=== PATIENT | male | born 1975 | race Caucasian/White ===

== ENCOUNTER 2020-01-06 22:44 | Emergency (ER) | payer SELFPAY ==
--- NOTE | 2020-01-06 22:45 | PC.NURSE ---
healthcare staff and md at bedside. pt deemed not an SI or HI patient at this time. sister allowed at bedside per md request. pt states i was just trying to sleep, i'm going through alot of shit right now, being forced to sleep in my truck -due to epo placed on me by -and my chronic back pain. I have a high tolerance to pain meds and buy a shit-ton off the street of oxycodone and try to supplement with methadone-my tolerance is high. I never was out . The monotype keyboard operator told me to get in the ambulance or go to long-term so i got in the ambulance. They sat and bullshitted with me for an hour and a half prior to me coming here . 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
--- NOTE | 2020-01-06 22:56 | PC.NURSE ---
Spoke with Lorie at poison control. Told her the patient stated he drank 300mg of methadone and snorted 150 mg of oxycodone at 1930 Lorie stated to obtain routine tox labs and watch patient for an hour. Pt is non-compliant with blood work at this time.
[2020-01-06 22:57] VITALS: BP 141/102; PULSE 98; RESP 16; TEMP 37.1; O2SAT 99; BMI 19.2
[2020-01-06 23:23] VITALS: BP 144/95; PULSE 133; RESP 18; O2SAT 97
--- NOTE | 2020-01-06 23:28 | PC.NURSE ---
md allowed patient to smoke on property despite notification by annual greenhouse manager and ed staff this was not allowed.
--- NOTE | 2020-01-06 23:39 | PC.NURSE ---
Pt remains stable at this time. 1 hour wait time is almost up and pt condition has not changed.
--- NOTE | 2020-01-06 23:39 | HMH.EDGENADL ---
ED Disposition Clinical Impression: Accidental drug ingestion Disposition: Home, Self-Care Condition on Discharge: Good Instructions: DI for Drug Overdose in Adults Referrals: Provider,Hans, [Primary Care Provider] - - Critical Care Critical Care Time: No Attestation: On 01/06/20, the high probability of a clinically significant, sudden or life threatening deterioration of the following system(s) required my full and direct attention, intervention and personal management. The time I documented below is in addition to time spent performing reported procedures but includes the following listed in this critical care notation. Medical Decision Making - Medical Records Medical records reviewed: Yes: I reviewed the patient's medical records. - Espinoza Inquiry Pt receiving controlled substance: No Vital Signs: 01/06/20 22:57 01/06/20 23:23 Temperature 98.8 F Temperature Source Oral Pulse Rate [Right Brachial] 98 H 133 H Respiratory Rate 16 18 Blood Pressure [Right Arm] 141/102 H 144/95 H Blood Pressure Mean [Right Arm] 115 111 Blood Pressure Source [Right Arm] Automatic Cuff Blood Pressure Position [Right Arm] Sitting 02 Sat by Pulse Oximetry 99 97 Oxygen Delivery Method Room Air Room Air - Lab Data Lab results reviewed: Yes: I reviewed the patient's lab results. General Adult HPI - General Chief complaint: Overdose Stated complaint: possibly took too many pills Time Seen by Provider: 01/06/20 23:20 Mode of Arrival: EMS Source of Information: Patient Limitations: No Limitations Description of Symptoms (Recalled from ER Triage Doc. by RN): Patient brought in by [facility]. Patient reports taken 300mg of Methadone and 150mg Oxycodone. Patient reports he is prescribed the Methadone but buys the oxycodone off the street. Patient reports he did not take the medication to harm himself in anyway, just to get some sleep. Patient reports he has alot of things going on in his personal life and has been sleeping in a truck for 3 weeks. Patient was advised by the animal damage control agent that if he did not come to the hopsital to be evaluated, he would be arrested. - History of Present Illness HPI narrative: 44-year-old male presents the ED after an acute ingestion of opiates. Patient is on methadone for opiate dependence and he has been buying oxycodone off the street and he states that he took a little too many today to try to get some sleep because him and his been having issues. Anyway she called 911 and the police came and they gave an ultimatum if he does not to the hospital that he will go to alf so he came to the hospital. Patient has no acute issues vital signs are all stable no evidence of any respiratory depression no evidence of a new any acute intoxication. - Related Data Home Medications Medication Instructions Recorded Confirmed No Known Home Medications 01/06/20 01/06/20 Allergies Allergy/AdvReac Type Severity Reaction Status Date / Time No Known Allergies Allergy Verified 01/06/20 23:05 [facility] History - Hepatitis A Screen Drug use history?: No High risk sexual behaviors?: No History of sexually transmitted infection?: No Currently employed?: No Childcare worker?: No Do you have indoor plumbing?: Yes Do you have electricity?: Yes Attestation statement:: This patient has been screened for Hepatitis A risk factors. I have reviewed the patient's past medical history: Yes - Social History Smoking Status: Current every day smoker # Packs/Day (cigarettes): 1 Alcohol Intake: never Occupational Status: employed ROS Obtained: Yes All systems reviewed & no additional complaints - Constitutional Constitutional: Reports system reviewed and no additional complaints, except as docu - Eyes Eyes: Reports system reviewed and no additional complaints, except as docu - ENT Ears, Nose, Mouth, and Throat: Reports system reviewed and no additional complaints, except as docu -
[2020-01-06 23:45] VITALS: BP 140/89; PULSE 97; RESP 18; TEMP 37.1; O2SAT 98
== END 2020-01-06 23:45 | disposition home or self-care (01) ==
PROVIDERS: Emergency Provider Family Medicine
DX: T40.3X1A Poisoning by methadone, accidental (unintentional), initial encounter (principal); T40.2X1A Poisoning by other opioids, accidental (unintentional), initial encounter; F17.210 Nicotine dependence, cigarettes, uncomplicated
CPT/HCPCS: 99282

== ENCOUNTER 2021-05-05 19:26 | Emergency (ER) | payer MEDICARE, SELFPAY ==
[2021-05-05 19:28] VITALS: BP 97/73; PULSE 90; RESP 14; TEMP 37.1; O2SAT 97; BMI 17.7
--- NOTE | 2021-05-05 20:09 | HMH.EDEXTP ---
ED Disposition Clinical Impression: Wrist drop, right wrist Disposition: Home, Self-Care Condition on Discharge: Good Instructions: Peripheral Neuropathy Additional Instructions: see pcp tomorrow Referrals: Dewayne Montaño MD [Primary Care Provider] - - Critical Care Critical Care Time: No Attestation: On 05/05/21, the high probability of a clinically significant, sudden or life threatening deterioration of the following system(s) required my full and direct attention, intervention and personal management. The time I documented below is in addition to time spent performing reported procedures but includes the following listed in this critical care notation. Medical Decision Making - Medical Records Medical records reviewed: Yes: I reviewed the patient's medical records. - Espinoza Inquiry Pt receiving controlled substance: No Vital Signs: 05/05/21 19:28 Temperature 98.8 F Temperature Source Oral Pulse Rate [Left] 90 Respiratory Rate 14 Blood Pressure [Left Arm] 97/73 L Blood Pressure Mean [Left Arm] 81 Blood Pressure Source [Left Arm] Automatic Cuff Blood Pressure Position [Left Arm] Sitting 02 Sat by Pulse Oximetry 97 Orders (Tests/Meds): ORDERS Category Date Time Status UDS [Drug Screen,Urine] Stat Lab 05/05/21 20:03 Received Medical Decision Narrative: pt with atraumatic rt wrist drop - will check labs and give splint and ask pt to see pcp tomorrow Extremity Problem HPI - General Chief complaint: Extremity Injury, Upper Stated complaint: no feeling/control over R hand Time Seen by Provider: 05/05/21 20:09 Mode of Arrival: Family Vehicle Source of Information: Patient, Medical Record Limitations: Physical Limitations Description of Symptoms (Recalled from ER Triage Doc. by RN): pt states his right hand is floppy and numb pt has slight lookback coordinator strengthin right but is weak. the laeft lookback coordinator is strong. states it happened 4 days ago - History of Present Illness HPI Narrative: pt with dec use of rt wrist over the last 4 days - no neck or brachial plexus injury reported awoke with wrist drop- no known cancer and no other c/o MD Complaint: other (rt wrist drop) Onset (ago): day(s) Consistency: constant Location: right, upper extremity Quality: other (wrist drop) Radiation: none Associated symptoms: denies other symptoms - Related Data Home Medications Medication Instructions Recorded Confirmed buprenorphine 8 mg-naloxone 2 mg 2 tab SUBLINGUAL DAILY tab 10/14/20 10/14/20 sublingual tablet Previous Rx's Medication Instructions Recorded prazosin 2 mg capsule 2 mg PO HS #90 cap 10/14/20 sildenafil 100 mg tablet 100 mg PO DAILY PRN #20 tab 10/14/20 trazodone 100 mg tablet 100 mg PO HS #90 tab 10/14/20 methylprednisolone 4 mg tablets in See Rx Instructions PO PER PKG DIR 11/28/20 a dose pack #21 tab Allergies Allergy/AdvReac Type Severity Reaction Status Date / Time No Known Allergies Allergy Verified 11/28/20 11:03 [facility] History - Hepatitis A Screen Drug use history?: No High risk sexual behaviors?: No History of sexually transmitted infection?: No Currently employed?: No Childcare worker?: No Do you have indoor plumbing?: Yes Do you have electricity?: Yes Attestation statement:: This patient has been screened for Hepatitis A risk factors. I have reviewed the patient's past medical history: Yes - Social History Smoking Status: Current every day smoker # Packs/Day (cigarettes): 1 Alcohol Intake: never Occupational Status: employed ROS Obtained: Yes All systems reviewed & no additional complaints - Constitutional Constitutional: Denies fever(s) - Eyes Eyes: Denies change in vision - ENT Ears, Nose, Mouth, and Throat: Denies sore throat - Cardiovascular Cardiovascular: Denies chest pain - Respiratory Respiratory: Denies shortness of breath - Gastrointestinal Gastrointestingal: Denies: vomiting - Genitourinary Male Genitourinary: D
[2021-05-05 20:26] LABS: Benzodiazepines Screen,Urine Positive ng/ml (<200)
[2021-05-05 20:27] LABS: Barbiturates Screen,Urine Negative ng/ml (<200); Cannabinoid Screen,Urine Negative ng/ml (<50)
[2021-05-05 20:28] LABS: Cocaine Screen,Urine Negative ng/ml (<300)
[2021-05-05 20:29] LABS: Methadone Screen,Urine Negative ng/ml (<300); Opiate Screen,Urine Positive ng/ml (<300)
[2021-05-05 20:30] LABS: Phencyclidine Screen,Urine Negative ng/ml (<25)
[2021-05-05 20:32] LABS: Basophils # 0.1 K/mm3 (0-0.2); Basophils % 1.3 % (0.1-2.0); Eosinophils # 0.5 K/mm3 (0.0-0.4); Eosinophils % 8.5 % (0.1-12.0); Hematocrit 43.1 % (42.0-52.0); Hemoglobin 14.1 g/dL (14.1-18.0); Lymphocytes # 2.1 K/mm3 (0.7-4.5); Lymphocytes % 38.9 % (10-50); Mean Corpuscular HGB Conc 32.8 g/dL (31.8-35.4); Mean Corpuscular Hemoglobin 29.4 pg (27.0-31.2); Mean Corpuscular Volume 89.6 fl (80-94); Mean Platelet Volume 7.9 fl (7.4-10.4); Monocytes # 0.4 K/mm3 (0.1-1.0); Monocytes % 7.1 % (1.7-9.3); Neutrophils # 2.4 K/mm3 (1.8-7.8); Neutrophils % 44.2 % (37.0-80.0); Platelet Count 324 K/mm3 (142-424); Red Blood Count 4.81 M/mm3 (4.60-6.20); Red Cell Distribution Width 13.3 % (11.5-17.5); White Blood Count 5.4 K/mm3 (4.8-10.8)
[2021-05-05 20:36] VITALS: BP 99/75; PULSE 84; RESP 14; TEMP 37.1
[2021-05-05 20:37] LABS: Alanine Aminotransferase 181 U/L (12-78); Albumin Level 3.8 g/dl (3.5-5.0); Albumin/Globulin Ratio 1.2 (1.1-1.8); Alkaline Phosphatase 113 U/L (38-126); Aspartate Amino Transferase 143 U/L (17-59); Bilirubin,Total 0.5 mg/dl (0.2-1.3); Blood Urea Nitrogen 8 mg/dl (9-20); Calcium 8.9 mg/dl (8.4-10.2); Carbon Dioxide 28 mmol/L (22.0-30.0); Chloride 101 mmol/L (98-107); Creatinine Clearance Estimated 102 mL/min (50-200); Estimated Glomerular Filt Rate 121 ml/min (>60); GFR (African American) 147 ML/MIN (>60); Globulin 3.1 g/dL (1.3-3.2); Glucose 120 mg/dl (74-100); Sodium 138 mmol/L (136-145); Total Protein,Serum 6.9 g/dl (6.3-8.2)
[2021-05-05 20:55] LABS: T4 (Thyroxine) 13.6 ug/dl (5.53-11.0)
[2021-05-05 21:08] LABS: Thyroid Stimulating Hormone 1.49 uIU/mL (0.465-4.68)
[2021-05-05 21:17] LABS: Erythrocyte Sedimentation Rate 12 mm/hr (0-15)
[2021-05-12 21:23] LABS: Amphetamine Positive (.); Amphetamine (GC/MS) 1090 ng/mL (Cutoff=500); Amphetamines Positive (.); Methamphetamine Positive (.); Methamphetamine (GC/MS) >3000 ng/mL (Cutoff=500)
== END 2021-05-05 20:39 | disposition home or self-care (01) ==
PROVIDERS: Family Medicine; Emergency Provider Emergency Medicine; PCP Family Medicine
DX: M21.331 Wrist drop, right wrist (principal); F17.210 Nicotine dependence, cigarettes, uncomplicated; Z79.899 Other long term (current) drug therapy
CPT/HCPCS: 80053; 80305; 80324; 84436; 84443; 85025; 85651; 99283

== ENCOUNTER 2021-05-19 21:23 | Emergency (ER) | payer MEDICARE, SELFPAY ==
[2021-05-19 21:24] VITALS: BP 133/87; PULSE 88; RESP 19; TEMP 36.8; O2SAT 98; BMI 17.7
--- NOTE | 2021-05-19 22:00 | HMH.EDSKAF ---
ED Disposition Clinical Impression: Impetigo Disposition: Home, Self-Care Condition on Discharge: Good Instructions: DI for Impetigo Additional Instructions: keep clean and use meds and see pcp for follow up Prescriptions: Minocycline HCl [Minocycline HCl 100mg Tab*] 100 mg PO BID #20 tab Transmission Status: Pending to [facility] Referrals: Dewayne Montaño MD [Primary Care Provider] - - Critical Care Critical Care Time: No Attestation: On 05/19/21, the high probability of a clinically significant, sudden or life threatening deterioration of the following system(s) required my full and direct attention, intervention and personal management. The time I documented below is in addition to time spent performing reported procedures but includes the following listed in this critical care notation. Medical Decision Making - Medical Records Medical records reviewed: Yes: I reviewed the patient's medical records. - Espinoza Inquiry Pt receiving controlled substance: No Vital Signs: 05/19/21 21:24 Temperature 98.2 F Temperature Source Oral Pulse Rate [Right] 88 Respiratory Rate 19 Blood Pressure [Right Arm] 133/87 Blood Pressure Mean [Right Arm] 102 02 Sat by Pulse Oximetry 98 Oxygen Delivery Method Room Air Medical Decision Narrative: use meds and see pcp for follow up Skin/Abscess/FB HPI - General Chief complaint: Skin/Abscess/Foreign Body Stated complaint: oral blisters and eyes Time Seen by Provider: 05/19/21 22:00 Mode of Arrival: Family Vehicle Source of Information: Patient, Medical Record Limitations: No Limitations Description of Symptoms (Recalled from ER Triage Doc. by RN): Pt c/o skin blisters surrounding mouth and R eye. Pt states he feels this is shingles, he has not been vaccinated. He has using bacitracin spray and neosporin that just seems to makes this worse . Pt admits to using heroin, meth, xanax, and whateven I can get my hands on . He denies any vision issues. - History of Present Illness HPI narrative: blisters around mouth and near eye over the last few days - pt concerned about shingles complaint: rash Onset (ago): day(s) Tetanus up to date: unsure Location: face Severity: moderate Associated symptoms: denies other symptoms Treatments prior to arrival: none - Related Data Previous Rx's Medication Instructions Recorded Minocycline HCl [Minocycline HCl 100 mg PO BID #20 tab 05/19/21 100mg Tab*] Allergies Allergy/AdvReac Type Severity Reaction Status Date / Time No Known Allergies Allergy Verified 11/28/20 11:03 [facility] History - Hepatitis A Screen Drug use history?: Yes High risk sexual behaviors?: No History of sexually transmitted infection?: No Currently employed?: No Childcare worker?: No Do you have indoor plumbing?: Yes Do you have electricity?: Yes Attestation statement:: This patient has been screened for Hepatitis A risk factors. I have reviewed the patient's past medical history: Yes - Social History Smoking Status: Current every day smoker # Packs/Day (cigarettes): 1 Alcohol Intake: never Occupational Status: employed ROS Obtained: Yes All systems reviewed & no additional complaints - Constitutional Constitutional: Denies fever(s) - Eyes Eyes: Denies change in vision - ENT Ears, Nose, Mouth, and Throat: Denies sore throat - Cardiovascular Cardiovascular: Denies chest pain - Respiratory Respiratory: Denies shortness of breath - Gastrointestinal Gastrointestingal: Denies: abdominal pain - Genitourinary Male Genitourinary: Denies hematuria - Musculoskeletal Musculoskeletal: Denies joint pain - Integumentary/Breasts Skin/Breast: Reports as per HPI, Reports rash - Neurologic Neurologic: Denies seizure-like activity Physical Exam - General General appearance: alert - Head Head exam: normocephalic - Eye Eye exam: Present: PERRL, EOMI - ENT ENT exam: Present: mucous membr
[2021-05-19 22:20] VITALS: BP 158/82; PULSE 85; RESP 18; TEMP 36.8; O2SAT 99
== END 2021-05-19 22:23 | disposition home or self-care (01) ==
PROVIDERS: Emergency Provider Emergency Medicine; PCP Family Medicine
DX: L01.00 Impetigo, unspecified (principal)
CPT/HCPCS: 99282

== ENCOUNTER 2024-03-23 21:35 | Emergency (ER) | payer MEDICARE, SELFPAY ==
[2024-03-23 21:35] VITALS: BP 142/94; PULSE 107; RESP 20; TEMP 36.9; O2SAT 100; BMI 18.6
[2024-03-23] MEDS: EPINEPHrine 1 MG/ML AMPUL 0.3 MG IM (21:41)
[2024-03-23] MEDS: ONDANSETRON 4MG/2ML VIAL 4 MG IV (21:47)
[2024-03-23] MEDS: METHYLPREDNISOLONE SOD SUCC 125MG VIAL 125 MG IV (21:47)
[2024-03-23] MEDS: diphenhydrAMINE 50MG/ML VIAL 25 MG IV (21:47)
[2024-03-23] MEDS: FAMOTIDINE 20MG/2ML VIAL 20 MG IV (21:47)
--- NOTE | 2024-03-23 21:56 | HMH.EDGENADL ---
Discharge Plan Disposition Patient Disposition: Left Against Medical Advice Condition: Good Prescriptions Prescriptions: New epinephrine 0.3 mg/0.3 mL syringe 0.3 mg IM Q10M PRN (Reason: anaphylaxis) Qty: 2 1RF Rx Instructions: for 2 doses No Action prazosin 2 mg capsule 2 mg PO DAILY fluoxetine [Prozac] 20 mg capsule 20 mg PO DAILY Qty: 90 3RF ropinirole 2 mg tablet 2 mg PO DAILY Qty: 90 3RF Vivitrol 380 mg suspension,extended rel recon 380 mg IM QMONTH Qty: 1 10RF Referrals Follow up/Referrals: Dewayne Montaño MD [Primary Care Provider] - See instructions Activity Restrictions/Add. Instructions Additional Instructions/Restrictions: You were evaluated in the emergency department today. Please grain picker your prescription for EpiPen and use as needed for anaphylactic reactions. You may take Benadryl every 8 hours as needed for allergic type symptoms should you develop any rebound symptoms at home. Return to the emergency department right away for new or worsening symptoms Clinical Impressions Clinical Impression: Anaphylactic reaction to bee sting Instructions Patient Instructions: DI for Anaphylaxis, DI for Insect Bites and Stings Print Language Print Language: Croatian Discharge ED Provider: Melisa Zamora General Adult HPI <Melisa Zamora DO - Last Filed: 03/23/24 23:31> General Chief complaint: Allergic Reaction Stated complaint: allergic reaction Time Seen by Provider: 03/23/24 21:38 Mode of Arrival: Ambulatory Source of Information: Patient Limitations: No Limitations Description of Symptoms (Recalled from ER Triage Doc. by RN): Patient reports being stung multiple times by yellow jackets at approximately 2100. Patient reports he has had an anaphlactic reaction to bee stings in the past that required epinephrine administration. Patient reports generalized pain, itching, shortness of breath, and vomiting since the time of the stings. History of Present Illness HPI narrative: This patient is a 48-year-old male who has a history of anxiety presenting to the emergency department for evaluation with concern for allergic reaction. 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 He took 25 mg of Benadryl prior to arrival. He states that he is had an anaphylactic reaction to bee stings in the past requiring epinephrine administration. Patient complains of generalized pain, itching, shortness of breath, throat tightness, nausea, and vomiting since the time of the stings. Related Data Home Medications ?Medication ?Instructions ?Recorded ?Confirmed prazosin 2 mg capsule 2 mg PO DAILY 07/07/21 07/07/21 Previous Rx's ?Medication ?Instructions ?Recorded fluoxetine 20 mg capsule (Prozac) 20 mg PO DAILY #90 caps 07/07/21 naltrexone microspheres 380 mg 380 mg IM QMONTH #1 ea 07/07/21 intramuscular suspension,extended release (Vivitrol) ropinirole 2 mg tablet 2 mg PO DAILY #90 tabs 07/07/21 epinephrine 0.3 mg/0.3 mL 0.3 mg (0.3 mL) IM Q10M PRN 03/23/24 injection syringe anaphylaxis #2 ea Allergies Allergy/AdvReac Type Severity Reaction Status Date / Time No Known Allergies Allergy Verified 11/03/22 08:12 [facility] <Melisa Zamora DO - Last Filed: 03/23/24 23:31> [facility] Disclaimer: The information contained in this section may have been updated after the patient was seen, as this information can be updated by other users. Social History Smoking Status: Current every day smoker alcohol intake: never current occupational status: employed Travel in the last 8 weeks: None <Melisa Zamora DO - Last Filed: 03/23/24 23:31> ROS Obtained: Yes All systems reviewed & no additional complaints except as documented Physical Exam <Melisa Zamora DO - Last Filed: 03/23/24 23:31> General General appearance: alert and in no apparent distress Head Head exam: atraumatic and normocephalic Eye Eye exam: Present normal appearance, PERRL and EOMI ENT ENT exam: Present normal exam, normal oropharynx, mucous membranes moist and normal external ear exam Neck Neck exam: Present normal inspection, full ROM and trachea midline; Absent tenderness Chest Chest inspection: Present normal inspection and symmetric chest wall rise; Absent tenderness Respiratory Respiratory exam: Present normal lung sounds bilaterally; Absent respiratory distress, wheezes, stridor or accessory muscle use Cardiovascular Cardiovascular exam: Present normal rhythm and tachycardia Abdominal Exam Abdominal exam: Present soft; Absent distention, tenderness or guarding Extremities Exam Extremities exam: Present normal inspection, full ROM and normal capillary refill; Absent tenderness or edema Back Exam Back exam: Present normal inspection and full ROM; Absent tenderness Neurological Exam Neurological exam: Present alert, oriented X3, CN II-XII intact and normal gait; Absent motor sensory deficit Psychiatric Psychiatric exam: Present normal affect and normal mood Skin Skin exam: Present warm and dry Medical Decision Making <Melisa Marshall Noah, DO - Last Filed: 03/23/24 23:31> Medical Records Medical records reviewed: Yes I reviewed the patient's medical records. [facility]ino[facility] Inquiry Pt receiving controlled substance: No Vital Signs: 03/23/24 21:35 03/23/24 22:00 03/23/24 22:30 Temperature 98.5 F Temperature Source Oral Pulse Rate 100 H 109 H Pulse Rate [Left Radial] 107 H Respiratory Rate 20 20 18 Blood Pressure 138/89 135/87 Blood Pressure [Right Arm] 142/94 H Blood Pressure Mean 105 102 Blood Pressure Mean [Right Arm] 110 Blood Pressure Source [Right Arm] Automatic Cuff Blood Pressure Position [Right Arm] Sitting 02 Sat by Pulse Oximetry 100 100 98 Oxygen Delivery Method Room Air 03/23/24 23:00 Temperature Temperature Source Pulse Rate 95 H Pulse Rate [Left Radial] Respiratory Rate 18 Blood Pressure 141/97 H Blood Pressure [Right Arm] Blood Pressure Mean 109 Blood Pressure Mean [Right Arm] Blood Pressure Source [Right Arm] Blood Pressure Position [Right Arm] 02 Sat by Pulse Oximetry 99 Oxygen Delivery Method Lab Data Lab results reviewed: Yes I reviewed the patient's lab results. Orders (Tests/Meds): ED MEDICATIONS Generic Name Dose Route Start Last Admin Trade Name Freq PRN Reason Stop Dose Admin Sodium Chloride 8 ml 03/23/24 21:39 Sodium Chloride 0.9% 10ml Vial IV 04/22/24 21:38 NEEDED PRN dilute pepcid Discontinued Medications Generic Name Dose Route Start Last Admin Trade Name Freq PRN Reason Stop Dose Admin Diphenhydramine HCl 25 mg 03/23/24 21:39 03/23/24 21:47 Diphenhydramine 50mg/Ml Vial IV 03/23/24 21:40 25 mg ONCE ONE Administration Epinephrine HCl 0.3 mg 03/23/24 21:39 03/23/24 21:41 Epinephrine 1 Mg/Ml Ampul IM 03/23/24 21:40 0.3 mg ONCE ONE Administration Famotidine 20 mg 03/23/24 21:39 03/23/24 21:47 Famotidine 20mg/2ml Vial IV 03/23/24 21:40 20 mg ONCE ONE Administration Methylprednisolone Sodium Succinate 125 mg 03/23/24 21:39 03/23/24 21:47 Methylprednisolone Sod Succ 125mg Vial IV 03/23/24 21:40 125 mg ONCE ONE Administration Ondansetron HCl 4 mg 03/23/24 21:39 03/23/24 21:47 Ondansetron 4mg/2ml Vial IV 03/23/24 21:40 4 mg ONCE ONE Administration Medical Decision Narrative: In summary, this patient is a 48-year-old male presenting to the Emergency Department for evaluation of concern for allergic reaction after bee sting. Differential diagnoses considered include but are not limited to anaphylaxis, allergic reaction, respiratory failure. Ruling out the most morbid conditions drove assessment. On exam, the patient is sitting upright in bed in no significant distress, but he is mildly tachycardic. He complains of throat tightness, shortness of breath, nausea, and stomach pain. Given multisystem involvement, will administer IM epinephrine as well as complete his full dose of Benadryl and administer methylprednisolone, Pepcid, and Zofran IV. Patient tolerated this well. At 2200, patient was placed in ED observation status pending continued monitoring after receiving IM epinephrine to determine whether or not the patient would be appropriate for discharge versus admission. The patient was provided serial reevaluations and cardiac monitoring while awaiting ultimate disposition. On multiple subsequent reassessments, the patient is resting comfortably with reassuring vital signs on cardiac telemetry. He states he is feeling a lot better and has not had rebound symptoms up to this point. Ultimately, his medications were given at 2141, so he will need observation until approximately 0145 at least. Patient care was signed out to the oncoming provider, Dr. Mccoy, pending serial reassessments and disposition. <Denis Mccoy MD - Last Filed: 03/24/24 00:34> Vital Signs: 03/23/24 21:35 03/23/24 22:00 03/23/24 22:30 Temperature 98.5 F Temperature Source Oral Pulse Rate 100 H 109 H Pulse Rate [Left Radial] 107 H Respiratory Rate 20 20 18 Blood Pressure 138/89 135/87 Blood Pressure [Right Arm] 142/94 H Blood Pressure Mean 105 102 Blood Pressure Mean [Right Arm] 110 Blood Pressure Source [Right Arm] Automatic Cuff Blood Pressure Position [Right Arm] Sitting 02 Sat by Pulse Oximetry 100 100 98 Oxygen Delivery Method Room Air 03/23/24 23:00 Temperature Temperature Source Pulse Rate 95 H Pulse Rate [Left Radial] Respiratory Rate 18 Blood Pressure 141/97 H Blood Pressure [Right Arm] Blood Pressure Mean 109 Blood Pressure Mean [Right Arm] Blood Pressure Source [Right Arm] Blood Pressure Position [Right Arm] 02 Sat by Pulse Oximetry 99 Oxygen Delivery Method Orders (Tests/Meds): ED MEDICATIONS Generic Name Dose Route Start Last Admin Trade Name Freq PRN Reason Stop Dose Admin Sodium Chloride 8 ml 03/23/24 21:39 Sodium Chloride 0.9% 10ml Vial IV 04/22/24 21:38 NEEDED PRN dilute pepcid Discontinued Medications Generic Name Dose Route Start Last Admin Trade Name Freq PRN Reason Stop Dose Admin Diphenhydramine HCl 25 mg 03/23/24 21:39 03/23/24 21:47 Diphenhydramine 50mg/Ml Vial IV 03/23/24 21:40 25 mg ONCE ONE Administration Epinephrine HCl 0.3 mg 03/23/24 21:39 03/23/24 21:41 Epinephrine 1 Mg/Ml Ampul IM 03/23/24 21:40 0.3 mg ONCE ONE Administration Famotidine 20 mg 03/23/24 21:39 03/23/24 21:47 Famotidine 20mg/2ml Vial IV 03/23/24 21:40 20 mg ONCE ONE Administration Methylprednisolone Sodium Succinate 125 mg 03/23/24 21:39 03/23/24 21:47 Methylprednisolone Sod Succ 125mg Vial IV 03/23/24 21:40 125 mg ONCE ONE Administration Ondansetron HCl 4 mg 03/23/24 21:39 03/23/24 21:47 Ondansetron 4mg/2ml Vial IV 03/23/24 21:40 4 mg ONCE ONE Administration Medical Decision Narrative: In summary, this patient is a 48-year-old male presenting to the Emergency Department for evaluation of concern for allergic reaction after bee sting. Differential diagnoses considered include but are not limited to anaphylaxis, allergic reaction, respiratory failure. Ruling out the most morbid conditions drove assessment. On exam, the patient is sitting upright in bed in no significant distress, but he is mildly tachycardic. He complains of throat tightness, shortness of breath, nausea, and stomach pain. Given multisystem involvement, will administer IM epinephrine as well as complete his full dose of Benadryl and administer methylprednisolone, Pepcid, and Zofran IV. Patient tolerated this well. At 2200, patient was placed in ED observation status pending continued monitoring after receiving IM epinephrine to determine whether or not the patient would be appropriate for discharge versus admission. The patient was provided serial reevaluations and cardiac monitoring while awaiting ultimate disposition. On multiple subsequent reassessments, the patient is resting comfortably with reassuring vital signs on cardiac telemetry. He states he is feeling a lot better and has not had rebound symptoms up to this point. Ultimately, his medications were given at 2141, so he will need observation until approximately 0145 at least. Patient care was signed out to the oncoming provider, Dr. Mccoy, pending serial reassessments and disposition. Mccoy: Upon my assumption of care patient is stable and resting comfortably. He was in ED observation status for continued monitoring after receiving IM epinephrine due to anaphylactic reaction. Patient was to be observed until 1:45 AM, however at 12:30 AM decided he wanted to sign out AGAINST MEDICAL ADVICE. He states he has to work tomorrow. I offered him a work note but he states he works for himself and he will not take the day off. Patient reports he has had allergic reactions before and is not worried about it. I explained to him the risks of progressive allergic reaction each time it occurs as well as the risk of rebound reaction when the epinephrine wears off. I explained to him he could have worsening symptoms that could cause severe illness, disability, or . He understood this. Patient was able to explain back to me their condition and the risks of leaving up to and including wosening of condition, severe life altering disability, or . Patient was able to provide reason for their decision and clearly express their decision. Patient has capacity to make this decision and left AGAINST MEDICAL ADVICE. EpiPen has been prescribed to the patient and he was instructed to pick this up. He was also explicitly instructed to return to the ER with any new or worsening symptoms including signs of recurring allergic reaction. He states he only lives 5 miles away and will come back if anything is worse. Total time in ED observation: 2 hours 30 minutes Critical Care <Melisa Zamora, DO - Last Filed: 03/23/24 23:31> Critical Care Time Critical Care Time: Yes Attestation: On 03/23/24, the high probability of a clinically significant, sudden or life threatening deterioration of the following system(s) required my full and direct attention, intervention and personal management. The time I documented below is in addition to time spent performing reported procedures but includes the following listed in this critical care notation. Total Time Total Critical Care Time: 38
[2024-03-23 22:00] VITALS: BP 138/89; PULSE 100; RESP 20; O2SAT 100
[2024-03-23 22:30] VITALS: BP 135/87; PULSE 109; RESP 18; O2SAT 98
[2024-03-23 23:00] VITALS: BP 141/97; PULSE 95; RESP 18; O2SAT 99
--- NOTE | 2024-03-24 00:30 | PC.NURSE ---
pt asked when he was going to be discharged and i informed him that we are observing him til 1:45 because of the epi that has been given. pt insisted on leaving now and has been provided with an AMA sheet.
[2024-03-24 00:36] VITALS: BP 144/97; PULSE 92; RESP 18; TEMP 36.9; O2SAT 97
--- NOTE | 2024-03-24 00:36 | PC.NURSE ---
Patient asked to leave AMA, patient was educated on the benefits or staying and the risks of leaving prior to observation time, risks included worsening of condition, return of symptoms, debility and . Patient agreed that he understood the risks and would still like to leave against medical advice. Patient is alert and orient times 4 and left facility with significant other.
== END 2024-03-24 00:30 | disposition left against medical advice (07) ==
PROVIDERS: Emergency Provider Emergency Medicine; PCP Family Medicine
DX: T78.2XXA Anaphylactic shock, unspecified, initial encounter (principal); T63.441A Toxic effect of venom of bees, accidental (unintentional), initial encounter; R06.02 Shortness of breath; R11.2 Nausea with vomiting, unspecified
CPT/HCPCS: 96374; 96375; 99291; J1200; J2405; J2919; S0028